=== PATIENT | female | born 1995 | race Caucasian/White ===

== ENCOUNTER → 2023-07-29 12:39 | Outpatient (REF) | payer OTHER, SELFPAY | LOC: HWRAD 12:39 | PROVIDERS: ATTENDING PHYSICIAN Advanced Practice Midwife; FAMILY PHYSICIAN Family Medicine | DX: O36.80X0 Pregnancy with inconclusive fetal viability, not applicable or unspecified (principal) | CPT/HCPCS: 76801 ==

== ENCOUNTER → 2023-09-19 15:39 | Outpatient (REF) | payer OTHER, SELFPAY | LOC: PNTC 15:39 | PROVIDERS: ATTENDING PHYSICIAN Advanced Practice Midwife | DX: Z36.0 Encounter for antenatal screening for chromosomal anomalies (principal) | CPT/HCPCS: 76805 ==

== ENCOUNTER → 2023-12-24 11:51 | Outpatient (REF) | payer OTHER, SELFPAY | LOC: PNTC 11:51 | PROVIDERS: ATTENDING PHYSICIAN Advanced Practice Midwife | DX: O36.63X0 Maternal care for excessive fetal growth, third trimester, not applicable or unspecified (principal) | CPT/HCPCS: 76816 ==